=== PATIENT | female | born 1990 | race Caucasian/White ===

== ENCOUNTER 2024-11-30 15:42 | Outpatient (REF) | payer BC, SELFPAY ==
--- NOTE | ~2024-11-30 | CT_ITS ---
CLINICAL HISTORY: migraine CT head without contrast Comparison: None Findings: No intra-axial mass, midline shift, hydrocephalus, or acute hemorrhage. No significant atrophy-like change or white matter disease. There is no sinus or mastoid fluid. The orbits are within normal limits. No skull fracture. IMPRESSION: 1. No acute intracranial findings. This document has been electronically signed by: Doug Ely MD on 12/03/2024 09:35:05
--- OUTSIDE RECORDS SUMMARY | 2024-11-30 15:47 | XMS_ITS | Data Portability ---
Author Organization [place] [facility],, CHARITY PEREA MD Address [address] [facility] [address] [place] [address] Assessment No assessment recorded. Plan of Treatment Reminders Order Date Submit Date Provider Last Modified By Organization Details Last Modified Time Details Appointments None recorded. Lab test, urine 2018 019 [email or web address] In-Office Order, Internal Use Only DO Not Attach Compendium DO Not Attach Compendium, Do Not Delete/merge, [id number] 12:55:48 beta-HCG, quantitati ve, serum or plasma 2018 019 [employer], [address] [place], [address], 9 07:23:57 test, urine 2018 019 [email or web address] In-Office Order, Internal Use Only DO Not Attach Compendium DO Not Attach Compendium, Do Not Delete/merge, [id number] 9 07:42:25 Referral None recorded. Procedures removal of iud (PROC) 2018 019 [facility] In-Office Order, Internal Use Only DO Not Attach Compendium DO Not Attach Compendium, Do Not Delete/merge, [id number] 9 14:46:10 Surgeries None recorded. Imaging None recorded. Medication Orders azithromyc in 500 mg tablet 2018 019 [employer] [facility], [address] [place], [address], 9 11:33:35 28 mg iron-800 mcg tablet 2018 019 [facility], [address] [place], [address], 9 14:50:44 Vitamin tablet 2017 018 [facility], [address] [place], [address], 9 11:34:00 Patient TargetsNo targets recorded. Patient Instructions Encounter Date Encounter Id Patient Instructions Last Modified By Organization Details Last Modified Time 04/06/2018 [id number] secondary amenorrhea: care instructions [email or web address] Not available 04/06/2018 14:26:27 She is here as a new patient for discussion of her amenorrhea. She had a Mirena placed 06/04/[address] Garcia. She is getting in 2 months and wishes fertility about a year after that or so. She would like 2 children, a few years apart, the last when she is age 33. She had a normal pap with annual just one year ago. 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 We discussed that the IUD is only guaranteed for 5 years by the companty, nad it has been 6. There have been studies suggesting it can be effective for up to 7 years, and [facility] is following those studies, but I cannot guarantee that she might not accidentally get , and with an IUD in place that could be devastating. She is advised to return after her marriage, and get the IUD removed, and consider using condoms for a few cycles, until she has menses. She will consider this advice. RX PNV given, and explained why useful. Also disucssed fertility issues. Return for annual in a month or two. Face to face discussion 45 minutes [email or web address] Not available 04/06/2018 14:39:53 09/25/2018 [id number] secondary amenorrhea: care instructions [email or web address] Not available 09/25/2018 14:50:16 She is here to discuss her control method. she has had the IUD since 2011, it is overdue for removal, and she and her partner would like her to get . she has been taking the PNV. 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 We discussed that she should try not to come in contact with worrisome infections, such as TB or CMV, while trying for fertility. She will discuss this with her floor worker well service. RX PNV. Removal of IUD disucssed, advised no intercourse for 2 tro 3 weeks prior to removal, and also use condoms for fist two months after to allow thie inflammation to down. All questions answered. RX zithromax for removal. Face to face discussion 25 minutes [email or web address] Not available 09/25/2018 14:53:46 10/16/2018 [id number] IUD removal: car e instructions Not available 10/16/2018 14:28:45 She is here for IUD removal, does not want a replacement, plans on fertility soon. She is taking the PNV. She tolerated IUD removal well, continue PNV, use condoms for 2 months then attempt fertility. Return for annual as is due. Not available 10/16/2018 14:29:33 04/13/2019 [id number] secondary amenorrhea: care instructions Not available 04/13/2019 11:56:15 She is here, accompanied by her partner, for a positive home test on her first morning urine. They are very excited, have been trying. She is taking PNV. LMP was 03/15/19, so menses is just missed yesterday. 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 Her urine test here is negative, however it is very early since misses menses so the first morning urine might have been positive and this negative, though early . She really wants to be sure right away, so a serum quant HCG is drawn at their request. First trimester discussed at length, all questions answered. We discussed that headaches are commonplace and that Tylenol in usual dosage is considered safe to use. We discussed that fatigue is also common, and ways to mitigate the nausea that may occur. Precautions stressed. We discussed the benefits of early access to obstetrical care, genetic testing if appropriate, and routine lab work. She will call her precipitate washer of choice to get set up for care, and an ultrasound, the options of different hospitals and group OB management discussed. She prefers to go to [facility], and the phone number for [facility] in [place] is given. Face to face discussion 25 minutes [email or web address] Not available 04/13/2019 12:09:51 Reason for Referral None Reported. Results Created Date Observation Date Name Description Value Unit Range Abnormal Flag Note LastModifiedBy Organization Detail LastModifiedTime 10/17/19 19 10/16/2018 remov al of iud (PROC ) IUD device intact Not Available In-Offi ce Order Internal Use Only DO Not Attach Compendium DO Not Attach Compendium, Do Not Delete/merge, [id number] 10/16/2018 14:02:06 10/17/19 19 10/16/2018 pregn clifford test, urine HCG negati ve Not Available In-Office Order Internal Use Only DO Not Attach Compendium DO Not Attach Compendium, Do Not Delete/merge, [id number] 10/16/2018 14:10:10 04/13/20 19 04/13/2019 chori ogona dotro pin, quant , serum or plasm a comments [facility] [address] [address] Medic al Dire celine galloway MD Not Available [facility] [address], [place], [address], 04/13/2019 15:17:10 04/13/20 19 04/13/2019 chori ogona dotro pin, quant , serum or plasm a total beta HCG, quantitative 28 mIU/m L Quant itati ve HCG Refer ence Range s Time after Pamela ption MIU/M L ----- ----- ----- ----- -- ----- ----- ----- ----- 0.2-1 Week 5-50 1-2 Weeks 50-50 0 2-3 Weeks 100-5 ,000 3-4 Weeks 500-1 0,000 4-5 Weeks 1,000 -50,0 00 5-6 Weeks 10,00 0-100 ,000 6-8 Weeks 15,00 0-200 ,000 2-3 Month s 10,00 0-100 ,000 2nd Trime ster 1,000 -94,0 00 3rd Trime ster 2,500 -90,0 00 Non-p regna nt Femal es 1-3 Not Available [facility] [address], [place], [address], 04/13/2019 15:17:10 04/13/20 19 04/13/2019 pregn clifford test, urine HCG negati ve Not Available In-Office Order Internal Use Only DO Not Attach Compendium DO Not Attach Compendium, Do Not Delete/merge, [id number] 04/13/2019 11:39:43 Result Notes None recorded. Problems Name Problem SNOMED Code Status Onset Date Resolution Date Notes Provider Name and Address Organization Details Recorded Time Amenorrhea 21973410 Active 018 Charity Perea MD [address], [place], [address] , [facility], 8 14:26:52 Problem Notes None recorded. Procedures Surgical History Date Name Laterality Status Provider Name and Address Organization Details Recorded Time 9 IUD Removal completed Charity Perea MD [address], [place], [address], [facility], 10/16/2018 14:28:38 Imaging Results None recorded. Procedure Notes None recorded. Medical Equipment None Reported. Allergies No known drug allergies Medications Name Sig Start Date Stop Date Status Note LastModified by Organization Details LastModified Time Prenatabs Rx 29 mg iron-1 mg tablet 04/13 completed Not Available Not Available Not Available Vitamin tablet Take 1 tablet every day by oral route. 04/13 completed Not Available Not Available Not Available azithromyci n 500 mg tablet take one tablet a day for 3 days, by mouth, begin the day prior to procedure 04/13 completed Not Available Not Available Not Available 28 mg iron-800 mcg tablet Take 1 tablet every day by oral route. 2018 active Not Available Not Available Not Avai lable Flucelvax Quad 6818-2716 (PF) 60 mcg (15 mcg x 4)/0.5 mL IM syringe ADM 0.5ML IM UTD 04/13 completed Not Available Not Available Not Available Afluria Quad 0984-1057 (PF) 60 mcg (15 mcg x 4)/0.5 mL IM syringe ADM 0.5ML IM UTD active Not Available Not Available No t Available Vitals Date Recorded Body height Body mass index (BMI) Body weight Heart rate Systolic blood pressure Diastolic blood pressure Provider Name and Address Organization Details Last Updated DateTime 8 158.75 cm 34.8 kg/m2 76972.0 5 g 94 /min 127 mm[Hg] 78 mm[Hg] Vero Mcfarlane in [facility], 8 14:07:01 Date Recorded Body height Body mass index (BMI) Body weight Heart rate Systolic blood pressure Diastolic blood pressure Provider Name and Address Organization Details Last Updated DateTime 9 158.75 cm 35.6 kg/m2 60365.2 9 g 88 /min 121 mm[Hg] 96 mm[Hg] Vero Mcfarlane in [facility], 9 14:26:07 Date Recorded Body height Body mass index (BMI) Body weight Heart rate Systolic blood pressure Diastolic blood pressure Provider Name and Address Organization Details Last Updated DateTime 9 158.75 cm 35.1 kg/m2 56138.2 3 g 77 /min 128 mm[Hg] 52 mm[Hg] Vero Mcfarlane in [facility], 9 14:01:08 Date Recorded Body height Heart rate Body mass index (BMI) Body weight Systolic blood pressure Diastolic blood pressure Provider Name and Address Organization Details Last Updated DateTime 9 158.75 cm 83 /min 34.7 kg/m2 70445.3 3 g 126 mm[Hg] 81 mm[Hg] Ifeoma Eduardademetria Mcfarlane in [facility], 9 11:37:30 Social History Question Answer Notes LastModified by Organizat ion Details LastModified Time Tobacco Smoking Status Never Smoker [facility], 04/06/2018 14:08:41 Do You Have An Advance Directive? No Information not available 04/06/2018 What Is Your Level Of Caffeine Consumption? Occasional Information not available 04/06/2018 How Much Tobacco Do You Chew? None Information not available 04/06/2018 What Type Of Diet Are You Following? REGULAR Information not available 04/06/2018 Which Illicit Or Recreational Drugs Have You Used? No Information not available 04/06/2018 Do You Reside In Or Have You Traveled To An Area Where Ebola Virus Transmission Is Active? No Information not available 04/06/2018 Education 4 Year College Informatio n not available 04/06/2018 Are There Any Guns Present In Your Home? No Information not available 04/06/2018 High Number Of Sexual Partners No Information not available 04/06/2018 To Which Gender Do You Self-identify? Female Information not available 04/06/2018 Marital Status Single Informatio n not available 04/06/2018 What Was The Date Of Your Most Recent Tobacco Screening? 04/13/2019 Information not available 04/13/2019 Seat Belts Used Routinely Yes Information not available 04/06/2018 Are You Sexually Active? Yes Information not available 04/06/2018 Smoke Alarm In Home Yes Information not available 04/06/2018 How Much Tobacco Do You Smoke? No Information not available 04/13/2019 General Stress Level Medium Information not available 04/06/2018 Do You Use Sunscreen Routinely? Yes Information not available 04/06/2018 Have You Recently (within The Last 12 Weeks, Or During A Current ) Traveled To Or Lived In A Zika-affected Area? No Information not available 04/06/2018 Sex: Unknown Functional Status Question Answer Note LastModified by Organizat ion Details LastModified Time What is your level of alcohol consumption? Occasional Information not available 04/06/2018 Do you or have you ever used smokeless tobacco? 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 Information not available 04/06/2018 Do you or have you ever used e-cigarettes or vape? Never used electronic cigarettes Information not available 04/13/2019 What is your exercise level? Occasional Information not available 04/06/2018 Mental Status None recorded. Family History Relationship Description Onset Age of this Age Resolved Age Notes LastModified by Organization Details LastModified Time Father No current problems or disability [email or web address] Not available 04/06 14:08:26 Mother No current problems or disability [email or web address] Not available 04/06 14:08:26 Medical History Condition Response Anesthesia complications N High Blood Pressure N Candidate for MyRisk panel N Autoimmune Condition N Kidney or Bladder Problems N Thyroid Problems N Depression N Lung Disease N GI Problems N Defects or Inherited Disease N Anemia N History of Ovarian Cancer N History of Breast Cancer N CHERYL exposure N BRCA testing in past N Osteopenia N Psychiatric Illness N Anxiety Disorder N Diabetes N Arthritis N Headaches or Migraines N Infertility N Asthma N History of Cancer N Endometriosis N Hepatitis N Heart Disease N Hypertension N Osteoporosis N Gynecological History Statement/Question Response Menses Monthly N Age at Menarche 14 Current Control Method None Age at First Child 0 Date of LMP 03/15/2019 Obstetrics History GPAL:G 0 P 0 0 0 0 Immunizations Vaccine Type Date Status Note Provider Nam e and Address Organization Details Recorded Time Influenza, split virus, quadrivalent, preservative 7 completed [facility], 04/06/2018 14:06:36 Influenza, split virus, quadrivalent, preservative 8 completed [facility], 09/25/2018 14:26:46 Past Encounters Encounter ID Performer Location Encounter Start Date Encounter Closed Date Diagnosis/Indication Diagnosis SNOMED-CT Code Diagnosis ICD10 Code Diagnosis Note [id number] MD CHARITY Bauer MD [address] [place] [address] 04/06/2018 13:56:12 04/06/2018 16:06:45 Amenorrhea 22228957 N91.2 [id number] MD CHARITY Bauer MD [address] [place] [address] 09/25/2018 14:16:24 09/25/2018 15:21:55 Amenorrhea 49463780 N91.2 [id number] MD CHARITY Bauer MD [address] [facility] [place] [address] 10/16/2018 13:55:03 10/16/2018 15:34:47 Removal of intrauterine device 10963717 Z30.432 [id number] MD CHARITY Bauer MD [address] [facility] [place] [address] 04/13/2019 11:24:20 04/13/2019 12:55:54 Amenorrhea 21676328 N91.2 Health Concerns Section Related Observation LastModified by Organization Detai ls LastModified Time None Recorded Concern Status LastModified by Organization Details LastModified Time None Recorded Advance Directives Directive N: Payers Encounter Date Sequence Insurance Name Policy Number Policy Grant Covered Member ID Grant Member ID Guarantor Name 04/06/2018 1 [employer] (POS) [id number] Madai Messier [id number] Madai Barlar 09/25/2018 1 [place] [facility] [id number] Dharmesh Barlar [id number] Madai Barlar 10/16/2018 1 [place] [facility] ([facility] [id number] Dharmesh Barlar [id number] Madai Barlar 04/13/2019 1 [place] [facility] [id number] Dharmesh Barlar [id number] Madai Barlar Notes Date Note Type Note Provider Name and Address Organization Details Recorded Time 04/06/2018 text/html She is here as a new patient for discussion of her amenorrhea. She had a Mirena placed 06/04/[address] Garcia. She is getting in 2 months and wishes fertility about a year after that or so. She would like 2 children, a few years apart, the last when she is age 33. She had a normal pap with annual just one year ago. Charity Perea MD [address] [facility],[address], [place], [address], [place] [facility], 04/06/2018 15:37:01 09/25/2018 text/html She is here to discuss her control method. she has had the IUD since 2011, it is overdue for removal, and she and her partner would like her to get . she has been taking the PNV. 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 Charity Perea MD [address], [place], [address], [facility], 09/25/2018 15:03:10 10/16/2018 text/html She is here for IUD removal, does not want a replacement, plans on fertility soon. She is taking the PNV. Charity Perea MD [address], [place], [address], [facility], 10/16/2018 14:29:52 04/13/2019 text/html She is here, accompanied by her partner, for a positive home test on her first morning urine. They are very excited, have been trying. She is taking PNV. LMP was 03/15/19, so menses is just missed yesterday. 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 Charity Perea MD [address], [place], [address], [facility], 04/13/2019 12:17:01 OBGyn Episode No OBEpisode recorded.
--- OUTSIDE RECORDS SUMMARY | 2024-11-30 15:47 | XMS_ITS | Clinical Summary ---
Author Organization [facility] Address [address] [place] [address] Phone Care Team Providers Care Filler Picker Name Role Phone Steven Price MD Primary Care Provider [phone] Allergies No known active allergies Medications spironolactone (ALDACTONE) 50 mg tablet Take 1 Tablet by mouth 2 times daily. Active naproxen sodium (ANAPROX) 550 mg tablet take 1 tablet by mouth every 12 hours with food or milk as needed 5 Active SUMAtriptan (IMITREX) 50 mg tablet TAKE 1 TABLET BY MOUTH AT ONSET OF MIGRAINE EVERY 4 HOURS UP TO 3 TABLETS IN 24 HOURS 5 Active betamethasone dipropionate (DIPROSONE) 0.05 % cream Apply thin layer to affected area BID for 2 weeks then stop. Avoid face and groin. 30 g 1 5 Active Active Problems Problem Noted Date Diagnosed Date Chronic left hip pain 08/12/2020 Overview (06/19/2024): Since 17 yo Surgical History Surgery Date Site/Laterality Comments WISDOM TOOTH EXTRACTION PROCEDURE: HISTORICAL WISDOM TEETH EXTRACTION Medical History Medical History Date Comments Acne DX:Acne Family History Medical History Relation Name Comments Hypertension Father Dementia Maternal Grandmother No Known Problems Mother No Known Problems Sister No Known Problems Son Relation Name Status Comments Father Alive Maternal Grandmother Mother Alive Sister Alive Son Alive Social History Tobacco Use Types Packs/Day Years Used Date Smoking Tobacco: Never Smokeless Tobacco: Never Alcohol Use Standard Drinks/Week Comments Yes 1 (1 standard drink = 0.6 oz pur e alcohol) Housing Instability Answer Date Recorde d Are you worried that in the next 2 months you may not have stable housing? No 08/27/2024 Food Access & Nutrition Answer Date Rec orded Do you have access to a vari ety of food including fruits and vegetables? Yes 08/27/2024 Access to Healthcare Answer Date Record ed Within the last 3 months, ho w many times did you visit the emergency department for your medical care? 0 08/27/2024 Health Literacy Answer Date Recorded How often do you need to hav e someone help you when you read instructions, pamphlets, or other written material from your doctor or pharmacy? Never 08/27/2024 Caregiver: How often do you need to have someone help you when you read instructions, pamphlets, or other written material from your doctor or pharmacy? Not on file 08/27/2024 Financial Risk Answer Date Recorded How hard is it for you to pa y for the very basics like food, housing, medical care, and air conditioning / heating? Not very hard 08/27/2024 Transportation Answer Date Recorded Has the lack of transportati on kept you from meetings, work, or from getting things needed for daily living? No Has the lack of transportati on kept you from medical appointments or from getting medications? No 08/27/2024 Social Isolation Answer Date Recorded How often do you feel lonely or isolated from th ose around you? Never 08/27/2024 Food Risk Answer Date Recorded Within the past 12 months we worried whether our food would run out before we got money to buy more. Never true 08/27/2024 Within the past 12 months th e food we bought just didn't last and we didn't have money to get more. Never true 08/27/2024 Dependent Care Answer Date Recorded Do you need help finding or paying for care for your loved ones. For example, director child or elderly care for an older adult? No 08/27/2024 Education Answer Date Recorded Do you think completing more education or training, like finishing a GED, going to college, or learning a trade, would be helpful for you? No 08/27/2024 Employment and Income Answer Date Recor ded During the last four weeks, have you been actively looking for work? No 08/27/2024 Living Situation Answer Date Recorded What is your living situation? 0 08/27/2024 Comments Unknown Sex and Gender Information Value Date Recorded Sex Assigned at Not on file Legal Sex Female 10:40 AM EST Gender Identity Not on file Sexual Orientation Not on file Obstetrics History Last Filed Vital Signs Vital Sign Reading Time Taken Comments Blood Pressure 108/64 08/27/2024 8:51 AM EST Pulse 85 08/27/2024 8:51 AM EST Temperature 36.8 ??C (98.3 ??F) 08/27/2024 8:51 AM ES T Respiratory Rate - - Oxygen Saturation 99% 08/27/2024 8:51 AM EST Inhaled Oxygen Concentration - - Weight 68 kg (150 lb) 08/27/2024 8:51 AM EST Height 160 cm (5' 3 ) 02/24/2024 8:45 AM EDT Body Mass Index 26.57 02/24/2024 8:45 AM EDT Plan of Treatment Upcoming Encounters Date Type Department Care Team ([facility] Contact Info) Description 02/27/2025 8:30 AM EDT Office Visit Internal Medicine - [address] [phone] Steven Price MD [address] [place] [id number] Health Maintenance Due Date Last Done Comments COVID-19 Vaccine (#1) 11/30/1996 DTaP,Tdap,and Td Vaccines (1 - Tdap) 11/30/2010 Hepatitis B Vaccines (1 of 3 - 19+ 3-dose series) 11/30/2010 Cervical Cancer Screening: P ap Smear 11/30/2012 HIV Screening 06/15/2022 Hypertension/CHF/CAD Annual BMP Blood Test 02/23/2025 02/24/2024, 02/24/2024 Influenza Vaccine (Season Ended) 2025 Depression Screening 08/27/2025 08/27/2024 Social Influencers of Health Screening 08/27/2025 08/27/2024 Cholesterol Screening (Lipid Panel) 02/23/2029 02/24/2024, 02/24/2024 Hepatitis C Screening Completed 02/24/2024 HIB Vaccines Aged Out No longer eligi ble based on patient's age to complete this topic HPV Vaccines Aged Out No longer eligi ble based on patient's age to complete this topic Hepatitis A Vaccines Aged Out No long er eligible based on patient's age to complete this topic IPV Vaccines Aged Out No longer eligi ble based on patient's age to complete this topic MMR Vaccines Aged Out No longer eligi ble based on patient's age to complete this topic Meningococcal ACWY Vaccine Aged Out N o longer eligible based on patient's age to complete this topic Meningococcal B Vaccine Aged Out No l onger eligible based on patient's age to complete this topic Pneumococcal Vaccine: Pediatrics (0 to 5 Years) and At-Risk Patients (6 to 64 Years) Aged Out No longer eligible b ased on patient's age to complete this topic RSV Immunization Patients Under 20 months Aged Out No longer eligible b ased on patient's age to complete this topic Varicella Vaccines Aged Out No longer eligible based on patient's age to complete this topic Procedures Procedure Name Priority Date/Time Associated Diagnosis Comments HEPATITIS C SCREENING Routine 02/24/2024 ANNUAL BMP BLOOD TEST Routine 02/24/2024 LIPID PANEL Routine 02/24/2024 from Last 3 Months or Most Recently Relevant to Health Maintenance Results * Annual BMP Blood Test (02/24/2024) Pathologist [facility] Annual BMP Blood Test Abstracted [facility] Provider HEALTH MAINTENANCE Final Result * Hepatitis C Screening (02/24/2024) [facility] Hepatitis C Screening Abstracted [facility] Provider HEALTH MAINTENANCE Final Result * Lipid panel (02/24/2024) [facility] LDL/HDL Ratio 2 0 - 4 Triglycerides 72 0 - 150 mg/dL Cholesterol 192 0 - 200 mg/dL HDL 86 >=40 mg/dL LDL Cholesterol 92 0 - 100 mg/dL Blood Venous blood specimen / Unknown [facility] Provider LAB BLOOD ORDERABLES Joaquina l Result from Last 3 Months or Most Recently Relevant to Health Maintenance Insurance [facility] Care Teams Filler Picker Relationship Specialty Start Date End Date Steven Price MD [address] [place] [id number] PCP - General 01/05/24
== END 2024-11-30 15:43 | disposition home or self-care (01) ==
LOC: HO.CT 15:42
PROVIDERS: PCP Student in an Organized Health Care Education/Training Program; Visit Provider Psychiatry & Neurology Neurology
DX: G43.909 Migraine, unspecified, not intractable, without status migrainosus (principal)
CPT/HCPCS: 70450

== ENCOUNTER → 2024-11-30 16:01 | Outpatient (BNV) | payer BC, SELFPAY | PROVIDERS: PCP Student in an Organized Health Care Education/Training Program; Visit Provider Radiology Vascular & Interventional Radiology | DX: G43.909 Migraine, unspecified, not intractable, without status migrainosus (principal) | CPT/HCPCS: 70450 ==